=== PATIENT | female | born 1945 | race Caucasian/White ===

== ENCOUNTER → 2019-08-18 | Outpatient (CLI) | payer OTHER ==
[~2019-08-18] MED LIST: DARVOCET-N 1001 EACH PO; TOPROL PO
== END ==
LOC: CAT 10:37
DX: Z13.6 Encounter for screening for cardiovascular disorders (principal); E78.00 Pure hypercholesterolemia, unspecified; I25.10 Atherosclerotic heart disease of native coronary artery without angina pectoris

== ENCOUNTER → 2020-03-15 | Outpatient (CLI) | payer OTHER | LOC: SJCVC 13:58 | DX: I47.1 Supraventricular tachycardia (principal); I35.1 Nonrheumatic aortic (valve) insufficiency; I47.2 Ventricular tachycardia; Z79.899 Other long term (current) drug therapy ==

== ENCOUNTER → 2021-03-14 | Outpatient (CLI) | payer OTHER | LOC: SJCVCIMAG 09:53 | PROVIDERS: ATTEND Internal Medicine Cardiovascular Disease | DX: I08.8 Other rheumatic multiple valve diseases (principal); I35.1 Nonrheumatic aortic (valve) insufficiency; I10 Essential (primary) hypertension; R00.2 Palpitations; R60.9 Edema, unspecified; E03.9 Hypothyroidism, unspecified; I47.1 Supraventricular tachycardia; R93.1 Abnormal findings on diagnostic imaging of heart and coronary circulation; I25.10 Atherosclerotic heart disease of native coronary artery without angina pectoris; Z79.899 Other long term (current) drug therapy ==